=== PATIENT | male | born 2000 | race Caucasian/White ===

== ENCOUNTER 2022-03-26 17:14 | Inpatient (IN) ==
[2022-03-26] MEDS ORDERED: MAGNESIUM SULF RIDER 4 GM/100 ML PREMIX IV PRN (18:26)
[2022-03-26] MEDS ORDERED: SODIUM PHOSPHATE INJ 30 MMOL in SODIUM CHLORIDE 0.9% 250 ML IV PRN (18:26)
[2022-03-26] MEDS ORDERED: SODIUM CHLORIDE 0.9% 1,000 ML IV ONE (18:26)
[2022-03-26] MEDS ORDERED: SODIUM BICARB INJ 100 MEQ in STERILE WATER INJ 400 ML IV PRN (18:26)
[2022-03-26] MEDS ORDERED: MAGNESIUM SULF RIDER 2 GM/50 ML PREMIX IV PRN (18:26)
[2022-03-26] MEDS ORDERED: POTASSIUM CHLORIDE RIDER 10 MEQ/100 ML PREMIX IV PRN (18:26)
[2022-03-26] MEDS ORDERED: INSULIN REGULAR DRIP 100 ML IV SCH (18:30)
[2022-03-26 19:08] LABS: Basophils # 0.1 10*3/uL (0.0-0.2); Basophils % 0.2 % (0.0-0.8); Hematocrit 50.6 VOL% (42.0-52.0); Hemoglobin 16.3 GM/DL (14.0-18.0); Immature Granulocytes % 1.5 %; Immature Granulocytes Absolute 0.34 #; Lymphocytes # 1.1 10*3/uL (1.4-4.0); Lymphocytes % 4.8 % (21.2-54.2); Mean Corpuscular HGB Conc 32.2 GM/DL (32-36); Mean Corpuscular Volume 94.6 FL (87-102); Mean Platelet Volume 10.6 FL (9.6-12.0); Monocytes # 1.1 10*3/uL (0.11-0.8); Monocytes % 4.9 % (1.7-12.7); Neutrophils % 88.6 % (38.7-73.9); Platelet Count 263 T/CUMM (130-400); Red Blood Count 5.35 MC/CUMM (3.8-5.5); Red Cell Distribution Width 12.2 % (9.3-17.3); White Blood Count 22.5 T/CUMM (4-12)
[2022-03-26 19:21] LABS: Calcium 8.2 MG/DL (8.5-10.1); Osmolality,Calculated 276.8 MOS/KG (273-304); Phosphorous 2.8 MG/DL (2.5-4.9); Potassium 4.7 MMOL/L (3.5-5.1)
[2022-03-26 19:41] LABS: Band Neutrophils 3 % (0-10); Lymphocytes 5 % (20-55); Total Cells Counted 100
[2022-03-26 19:42] LABS: Platelet Estimate Normal; Polychromasia Slight
[2022-03-26] MEDS ORDERED: DEXTROSE 10% 250 ML BAG IV PRN ×2 (19:45→19:46)
[2022-03-26] MEDS: SODIUM CHLORIDE 0.9% 1,000 ML IV SCH ×4 (20:15→23:18)
[2022-03-26] MEDS: ENOXAPARIN 40 MG/0.4 ML SYRINGE SUBCUT SCH (20:32)
[2022-03-26 21:17] LABS: ABG Base Excess -21.3 MMOL/L (-2.5-2.5); ABG HCO3 9.9 MMOL/L (20-26); ABG Oxygen Saturation 99.1 % (95-100); ABG TCO2 6.3 MMOL/L (23-27)
[2022-03-26] MEDS ORDERED: ONDANSETRON 4 MG/2 ML VIAL IV PRN (21:17)
[2022-03-26 21:23] LABS: ABG PH 7.147 (7.35-7.45)
[2022-03-26 21:24] LABS: ABG PCO2 20.6 MM HG (35-48)
[2022-03-26] MEDS: ACETAMINOPHEN 325 MG TABLET PO PRN (21:30)
[2022-03-26] MEDS: DEXTROSE 5% NACL 0.9% 1,000 ML IV SCH (22:00)
[2022-03-26 22:50] LABS: Calcium 7.9 MG/DL (8.5-10.1); Osmolality,Calculated 276.8 MOS/KG (273-304); Potassium 4.5 MMOL/L (3.5-5.1)
[2022-03-26 23:11] LABS: ABG Base Excess -15.2 MMOL/L (-2.5-2.5); ABG HCO3 13.2 MMOL/L (20-26); ABG Oxygen Saturation 98.5 % (95-100); ABG PCO2 25.3 MM HG (35-48); ABG PH 7.246 (7.35-7.45); ABG TCO2 9.7 MMOL/L (23-27)
[2022-03-27 01:14] LABS: ABG Base Excess -11.9 MMOL/L (-2.5-2.5); ABG HCO3 15.4 MMOL/L (20-26); ABG Oxygen Saturation 98.5 % (95-100); ABG PH 7.252 (7.35-7.45); ABG TCO2 12.8 MMOL/L (23-27)
[2022-03-27] MEDS: DEXTROSE 5% NACL 0.9% 1,000 ML IV SCH (02:13)
[2022-03-27] MEDS: DEXT 5% NACL 0.45% KCL 20 MEQ 20 MEQ/1,000 ML BAG IV SCH ×2 (02:17→08:37)
[2022-03-27 03:18] LABS: ABG Base Excess -10.8 MMOL/L (-2.5-2.5); ABG HCO3 16.1 MMOL/L (20-26); ABG Oxygen Saturation 98.8 % (95-100); ABG PH 7.259 (7.35-7.45); ABG TCO2 13.7 MMOL/L (23-27)
[2022-03-27 03:46] LABS: Basophils % 0.2 % (0.0-0.8); Eosinophils % 0.2 % (0.00-10.9); Hemoglobin 14.4 GM/DL (14.0-18.0); Immature Granulocytes % 0.3 %; Immature Granulocytes Absolute 0.04 #; Lymphocytes # 2.6 10*3/uL (1.4-4.0); Lymphocytes % 19.9 % (21.2-54.2); Mean Corpuscular HGB Conc 34.3 GM/DL (32-36); Mean Corpuscular Volume 89.6 FL (87-102); Mean Platelet Volume 10.7 FL (9.6-12.0); Monocytes % 7.4 % (1.7-12.7); Platelet Count 233 T/CUMM (130-400); Red Blood Count 4.69 MC/CUMM (3.8-5.5); Red Cell Distribution Width 12.1 % (9.3-17.3); White Blood Count 13.1 T/CUMM (4-12)
[2022-03-27 04:05] LABS: Calcium 7.8 MG/DL (8.5-10.1); Potassium 3.6 MMOL/L (3.5-5.1)
[2022-03-27 04:11] LABS: Phosphorous 1.6 MG/DL (2.5-4.9)
[2022-03-27 07:31] LABS: Calcium 8.3 MG/DL (8.5-10.1); Osmolality,Calculated 281.3 MOS/KG (273-304); Potassium 3.9 MMOL/L (3.5-5.1)
[2022-03-27 11:14] LABS: Calcium 7.9 MG/DL (8.5-10.1); Osmolality,Calculated 281.4 MOS/KG (273-304); Potassium 3.5 MMOL/L (3.5-5.1)
[2022-03-27] MEDS ORDERED: SODIUM CHLORIDE 0.45% 1,000 ML IV SCH (11:30)
[2022-03-27] MEDS ORDERED: GLUCAGON 1 MG VIAL IM PRN (12:44)
[2022-03-27] MEDS ORDERED: DEXTROSE 10% 250 ML BAG IV PRN (12:50)
[2022-03-27 15:38] LABS: Osmolality,Calculated 285.3 MOS/KG (273-304)
[2022-03-27] MEDS: INSULIN GLARGINE 100 UNIT/ML SUBCUT SCH (15:51)
[2022-03-27] MEDS: INSULIN REGULAR 100 UNIT/ML SUBCUT SCH ×2 (16:30→21:01)
[2022-03-27] MEDS: ACETAMINOPHEN 325 MG TABLET PO PRN (21:00)
[2022-03-27] MEDS: ENOXAPARIN 40 MG/0.4 ML SYRINGE SUBCUT SCH (21:02)
[2022-03-28] MEDS: INSULIN REGULAR 100 UNIT/ML SUBCUT SCH ×4 (00:54→12:23)
[2022-03-28] MEDS: INSULIN GLARGINE 100 UNIT/ML SUBCUT SCH (09:00)
[2022-03-28 09:11] LABS: Calcium 8.8 MG/DL (8.5-10.1); Osmolality,Calculated 289.8 MOS/KG (273-304); Potassium 3.4 MMOL/L (3.5-5.1)
[2022-03-28] MEDS ORDERED: POTASSIUM CHLORIDE 20 MEQ TABLET PO ONE (09:33)
== END 2022-03-28 12:05 | disposition home or self-care (01) | DRG 639 ==
LOC: N.ICU 18:37
PROVIDERS: ADMIT Family Medicine; ATTEND Family Medicine